=== PATIENT | male | born 2000 ===

== ENCOUNTER 2018-04-19 15:16 | Emergency (ER) | payer MEDICAID ==
[2018-04-19 15:22] VITALS: RESP 16
--- NOTE | 2018-04-19 16:55 | ED PDOC ---
HPI: Psych/Substance Abuse Time Seen by Provider: 04/19/18 15:31 Chief Complaint (Nursing): Psychiatric Evaluation Chief Complaint (Provider): Psychiatric Evaluation History Per: Patient History/Exam Limitations: no limitations Onset/Duration Of Symptoms: Intermittent Episodes (ongoing for months) Current Symptoms Are (Timing): Still Present Additional Complaint(s): 17 y/o male presenting for evaluation of intermittent anxiety ongoing for the last few months. Patient states his anxiety began while he was away at school this past spring semester. He reports that he doesnt like the college hes attending and after completing his freshman year hes dreading going back in June for football camp. He states that hes stressed with academics and he had to take a summer class which he recently completed. Patient also reports that lately he hasnt wanted to hang out with his friends and when he does he feels anxious. He says this occurred today, prompting ED visit. He states hes never been formally evaluated and diagnosed with any condition by a psychiatrist. He reports his symptoms are sometimes associated with palpitations and sweaty hands. Denies suicidal or homicidal ideations. Denies auditory or visual hallucinations. PMD. Dr. French Past Medical History Reviewed: Historical Data, Nursing Documentation, Vital Signs Vital Signs: Last Vital Signs Temp 98.0 F 04/19/18 15:19 Pulse 126 H 04/19/18 15:19 Resp 16 04/19/18 15:19 BP 145/65 04/19/18 15:19 Pulse Ox 99 04/19/18 15:19 - Medical History PMH: No Chronic Diseases - Surgical History Surgical History: No Surg Hx - Family History Family History: States: Other Other Family History: anxiety - Social History Current smoker - smoking cessation education provided: No Alcohol: None Drugs: Denies - Home Medications Home Medications: Ambulatory Orders Medication Instructions Recorded busPIRone [Buspar] 5 mg PO BID PRN #10 tab 04/19/18 - Allergies Allergies/Adverse Reactions: Allergies Allergy/AdvReac Type Severity Reaction Status Date / Time apple Allergy ITCHING Verified 04/19/18 15:19 Review of Systems ROS Statement: Except As Marked, All Systems Reviewed And Found Negative Psych: Positive for: Anxiety. Negative for: Suicidal ideation Physical Exam - Reviewed Nursing Documentation Reviewed: Yes Vital Signs Reviewed: Yes - Physical Exam Appears: Positive for: Well (Resting comfortably. ), Non-toxic, No Acute Distress Head Exam: Positive for: ATRAUMATIC, NORMOCEPHALIC Skin: Positive for: Normal Color, Warm, Dry Eye Exam: Positive for: EOMI, PERRL ENT: Positive for: Other (Mucus membranes moist. Airway patent, (-) stridor.) Neck: Positive for: Painless ROM, Supple Cardiovascular/Chest: Positive for: Tachycardia Respiratory: Positive for: Normal Breath Sounds. Negative for: Decreased Breath Sounds, Accessory Muscle Use, Respiratory Distress Gastrointestinal/Abdominal: Positive for: Soft. Negative for: Tenderness, Distended, Guarding Extremity: Positive for: Normal ROM Neurologic/Psych: Positive for: Alert, Oriented (x3), Mood/Affect (appropriate) , Gait (steady in ED ) - ECG O2 Sat by Pulse Oximetry: 99 (RA) Pulse Ox Interpretation: Normal Medical Decision Making Medical Decision Makin:38 Impression: Anxiety Plan: - patient declined medication in ED - crisis evaluation - re-evaluation 1725 Per crisis evaluation, patient is stable for discharge with the diagnosis of anxiety per Dr Luevano. Dr Luevano requesting patient be discharged with Buspar 5mg to use as needed until his follow up appt at the clinic as arranged by crisis. 1820 On re-evaluation, patient reports improvement of symptoms. On exam, patient remains AAOx3, in no acute distress. On exam, neck is supple, lungs CTA, cardiac RRR, neuro exam shows no focal findings. Repeat HR: 100 Repeat BP: 128/78 VSS, stable for discharge. Diagnostic results d/w the patient in great detail. Dx of anxiety d/w the patient. Based on history, exam and diagnostic results plan will be for discharge and outpatient psychiatry follow up. Advised to follow up with primary care physician/psych in 1-2 days without fail. Advised to take medication as prescribed. Return to the emergency room at any time for any new or worsening symptoms. Patient states he fully agrees with and understands discharge instructions. States that he agrees with the plan and disposition. Verbalized and repeated discharge instructions and plan. I have given the patient opportunity to ask any additional questions. Scribe Attestation: Documented by Nate Umanzor, acting as a scribe for Madonna Penny PA-C. Provider Scribe Attestation: All medical record entries made by the scribe were at my direction and personally dictated by me. I have reviewed the chart and agree that the record accurately reflects my personal performance of the history, physical exam, medical decision making, and the department course for this patient. I have also personally directed, reviewed, and agree with the discharge instructions and disposition. Disposition - Clinical Impression Clinical Impression: Anxiety - Patient ED Disposition Is Patient to be Admitted: No Counseled Patient/Family Regarding: Diagnosis, Need For Followup, Rx Given - Disposition Referrals: [facility] [Outside] Disposition: Routine/Home Disposition Time: 18:23 Condition: STABLE Additional Instructions: FOLLOW UP WITH CLINIC DIRECTED/ARRANGED BY CRISIS. RETURN TO ED WITH ANY NEW OR WORSENING SYMPTOMS. TAKE MEDICATION NEEDED FOR SYMPTOMS. Prescriptions: busPIRone [Buspar] 5 mg PO BID PRN #10 tab PRN Reason: Anxiety Instructions: Anxiety, Adult (DC) Forms: [employer] (Amharic) Print Language: SWEDISH - POA Present On Arrival: None
[2018-04-19 18:22] VITALS: BP 128/78; PULSE 100; TEMP 97.6
[2018-04-19 18:25] VITALS: O2SAT 99
== END 2018-04-19 18:37 | disposition home or self-care (01) ==
LOC: H.ER 15:16
DX: F41.9 Anxiety disorder, unspecified (principal)